=== PATIENT | male | born 1980 | race Caucasian/White ===

== ENCOUNTER 2017-11-02 17:42 | Emergency (ER) | END 2017-11-02 19:40 | disposition home or self-care (01) ==

== ENCOUNTER 2018-09-20 11:00 | Inpatient (IN) | payer SELFPAY ==
[~2018-09-20] VITALS: Ht 180.3 cm; Wt 95.5 kg
[~2018-09-20 11:00] MED LIST: NAPR-985 PO
[2018-09-20] MEDS ORDERED: SOD CHLORIDE 0.9% 250 ML IV STA (12:41)
[2018-09-20] MEDS ORDERED: ONDANSETRON 4 MG INJ IV STA (12:41)
[2018-09-20] MEDS ORDERED: morphine 4 MG/ML VIAL IV STA (12:41)
--- NOTE | 2018-09-20 13:38 | ERD ---
ER Documentation Chief Complaint Chief Complaint pt is bib family with c/o LLQ abd pain since last night HPI 38-year-old male presents the emergency department complaining of left lower quadrant abdominal pain. Patient was in his normal state of health until yesterday which time he began developing a left lower quadrant abdominal pain. Pain was non-provoked and nonradiating. Its associated with no blood in his stool. He was nauseous and had one episode of nonbilious, nonbloody emesis. Patient had no urinary symptoms. Patient reports the pain is severe. ROS All systems reviewed and are negative except as per history of present illness. Medications Home Meds Active Scripts Naproxen* (Naprosyn*) 500 Mg Tablet, 500 MG PO BID PRN for PAIN AND/OR INFLAMMATION, #30 TAB Prov:JONELLE HESS PA-C 11/02/17 Allergies Allergies: Coded Allergies: No Known Allergy (Unverified , 11/02/17) PMhx/Soc Hx Alcohol Use: Yes (social) Hx Substance Use: No Hx Tobacco Use: No FmHx Noncontributory for chief complaint Physical Exam Vitals Vital Signs Date Temp Pulse Resp B/P (MAP) Pulse Ox O2 O2 Flow FiO2 Time Delivery Rate 09/20/18 98.3 74 18 123/73 98 11:14 (90) Physical Exam GENERAL: The patient is well developed and appropriate for usual state of health in no apparent distress HEENT: Pupils equal, round, and reactive to light. EOMI. There is no scleral icterus. NECK: C-spine is soft and supple, there is no meningismus. There is no cervical lymphadenopathy. LUNGS: Clear to auscultation bilaterally. There are no rales, wheezes or rhonchi. HEART: Regular rate and rhythm, no murmurs, clicks, rubs or gallops. ABDOMEN: Soft, nondistended. Patient has significant left lower quadrant pain with localized guarding. No rebound or diffuse peritonitis noted. EXTREMITIES: There is no peripheral cyanosis or edema. No focal swelling or erythema. NEURO: The patient moves all four extremities with 5/5 strength. Cranial nerves II - XII are intact. Normal gait. Alert and oriented SKIN: There is no apparent rash or petechiae. HEME/LYMPHATIC: There is no evidence of excessive bruising or lymphedema. PSYCHIATRIC: The patient does not appear anxious or depressed. Result Diagram: 09/20/18 1256 Results 24 hrs Laboratory Tests Test 09/20/18 12:56 White Blood Count 23.8 10^3/ul Red Blood Count 4.82 10^6/ul Hemoglobin 14.6 g/dl Hematocrit 43.0 % Mean Corpuscular Volume 89.2 fl Mean Corpuscular Hemoglobin 30.3 pg Mean Corpuscular Hemoglobin Concent 34.0 g/dl Red Cell Distribution Width 12.7 % Platelet Count 231 10^3/UL Mean Platelet Volume 10.2 fl Immature Granulocytes % 0.600 % Neutrophils % 87.9 % Lymphocytes % 5.6 % Monocytes % 5.7 % Eosinophils % 0.0 % Basophils % 0.2 % Nucleated Red Blood Cells % 0.0 /100WBC Immature Granulocytes # 0.140 10^3/ul Neutrophils # 20.9 10^3/ul Lymphocytes # 1.3 10^3/ul Monocytes # 1.4 10^3/ul Eosinophils # 0.0 10^3/ul Basophils # 0.1 10^3/ul Nucleated Red Blood Cells # 0.0 10^3/ul Urine Color [place]IO Urine Clarity SLIGHTLY CLOUDY Urine pH 5.0 Urine Specific [place] 1.021 Urine Ketones 1+ mg/dL Urine Nitrite NEGATIVE mg/dL Urine Bilirubin NEGATIVE mg/dL Urine Urobilinogen 1+ mg/dL Urine Leukocyte Esterase NEGATIVE Chad/ul Urine Microscopic RBC 0 /HPF Urine Microscopic WBC 1 /HPF Urine Bacteria FEW /HPF Urine Mucus MANY /HPF Urine Hemoglobin NEGATIVE mg/dL Urine Glucose NEGATIVE mg/dL Urine Total Protein NEGATIVE mg/dl Current Medications Medications Dose Sig/Mehrdad Start Time Status Last (Trade) Ordered Route PRN Stop Time Admin Dose Reason Admin Sodium 250 ml @ Q1H STAT 09/20/18 09/20/18 Chloride 250 mls/hr IV 12:41 13:03 09/20/18 13:40 Morphine 4 mg ONCE STAT 09/20/18 DC 09/20/18 Sulfate IV 12:41 13:03 (morphine) 09/20/18 12:42 Ondansetron 4 mg ONCE STAT 09/20/18 DC 09/20/18 HCl (Zofran IV 12:41 13:03 Inj) 09/20/18 12:42 Piperacillin 100 ml @ ONCE ONCE 09/20/18 Sod/ 200 mls/hr IVPB 14:00 Tazobactam 5/24/19 14:29 Sod 100 ml @ ONCE ONCE 09/20/18 Metronidazole 100 mls/hr IVPB 14:00 09/20/18 14:59 Procedures/MDM Patient was taken to a room, seen and evaluated. Comfort measures were initiated. RADIOLOGY: Reviewed with the radiologist CONSULTATION: Hospitalist was notified for admission REEVALUATION: 1335: diagnostic tests were appreciated. His pain was improved. Arrangements were made for admission. MEDICAL DECISION MAKIN-year-old otherwise healthy male presents with abdominal pain of uncertain etiology. Although the differential diagnosis entertained included appendicitis and other intra-abdominal concerns, his evaluation including his CT images demonstrate evidence of acute diverticulitis without rupture or abscess. Given his significant the elevated white count, he appears to be high risk. Patient will be admitted for IV antibiotics, pain control and further observation. Departure Diagnosis: Primary Impression: Diverticulitis Condition: ELIUD Remy September 20, 2018 13:38
[2018-09-20] MEDS ORDERED: PIPER-TAZO 3.375 GM IV (PMX) 100 ML IVPB ONE (14:00)
[2018-09-20] MEDS ORDERED: ONDANSETRON 4 MG INJ IV PRN ×2 (14:00→14:30)
[2018-09-20] MEDS ORDERED: metroNIDAZOLE 500 MG/NS (PMX) 100 ML IVPB ONE (14:00)
[2018-09-20] MEDS ORDERED: ACETAMINOPHEN 325 MG TAB PO PRN ×2 (14:00→14:30)
[2018-09-20] MEDS: SOD CHLORIDE 0.9% 1,000 ML IV SCH (14:01)
[2018-09-20] MEDS ORDERED: HYDROCODONE/APAP (5/325) TAB PO PRN (14:30)
[2018-09-20] MEDS ORDERED: MAGNESIUM HYDROXIDE 30ML CUP PO PRN (14:30)
[2018-09-20] MEDS ORDERED: NACL 0.9% 3 ML SYG IV SCH (14:30)
[2018-09-20] MEDS ORDERED: ACETAMINOPHEN 650 MG SUPP PR PRN (14:30)
[2018-09-20] MEDS ORDERED: DOCUSATE SODIUM 100 MG CAP PO PRN (14:30)
[2018-09-20] MEDS ORDERED: BISACODYL 10 MG SUPP PR PRN (14:30)
[2018-09-20] MEDS ORDERED: morphine 2 MG INJ IV PRN (14:30)
--- NOTE | 2018-09-20 18:33 | HP ---
Date/Time of Note Date/Time of Note DATE: 09/20/18 TIME: 18:28 Assessment/Plan VTE Prophylaxis SCD applied (from Nsg): Yes Pharmacological prophylaxis: NA/contraindicated Pharm contraindication: low risk/ambulating Lines/Catheters IV Catheter Type (from Nrsg): Saline Lock Assessment/Plan Hospital Course Assessment and plan 1. Diverticulitis. Placed on antibiotics. Continue IV fluids. Continue with analgesics as needed. 2. Suspect renal lesion. We will obtain renal ultrasound. 3. Leukocytosis. Secondary to #1. Continue antibiotic regimen. 4. Hyperbilirubinemia. Follow-up on trend. Disposition plan. Continue with anabiotics. Will advance diet once abdominal pain subsides. Continue monitoring. Discussed plan of care with Result Diagram: 09/20/18 1256 09/20/18 1256 Results 24hrs Laboratory Tests Test 09/20/18 12:56 White Blood Count 23.8 H Red Blood Count 4.82 Hemoglobin 14.6 Hematocrit 43.0 Mean Corpuscular Volume 89.2 Mean Corpuscular Hemoglobin 30.3 Mean Corpuscular Hemoglobin Concent 34.0 Red Cell Distribution Width 12.7 Platelet Count 231 Mean Platelet Volume 10.2 Immature Granulocytes % 0.600 H Neutrophils % 87.9 H Lymphocytes % 5.6 L Monocytes % 5.7 Eosinophils % 0.0 Basophils % 0.2 Nucleated Red Blood Cells % 0.0 Immature Granulocytes # 0.140 H Neutrophils # 20.9 H Lymphocytes # 1.3 Monocytes # 1.4 H Eosinophils # 0.0 Basophils # 0.1 Nucleated Red Blood Cells # 0.0 Urine Color [place] Urine Clarity SLIGHTLY CLOUDY A Urine pH 5.0 Urine Specific [place] 1.021 Urine Ketones 1+ H Urine Nitrite NEGATIVE Urine Bilirubin NEGATIVE Urine Urobilinogen 1+ H Urine Leukocyte Esterase NEGATIVE Urine Microscopic RBC 0 Urine Microscopic WBC 1 Urine Bacteria FEW A Urine Mucus MANY A Urine Hemoglobin NEGATIVE Urine Glucose NEGATIVE Urine Total Protein NEGATIVE Sodium Level 138 Potassium Level 3.7 Chloride Level 105 Carbon Dioxide Level 24 Anion Gap 9 Blood Urea Nitrogen 8 Creatinine 0.77 Est Glomerular Filtrat Rate mL/min > 60 Glucose Level 120 Calcium Level 9.5 Total Bilirubin 1.6 H Direct Bilirubin 0.00 Indirect Bilirubin 1.6 H Aspartate Amino Transf (AST/SGOT) 25 Alanine Aminotransferase (ALT/SGPT) 31 Alkaline Phosphatase 101 Total Protein 8.0 Albumin 4.6 Globulin 3.40 H Albumin/Globulin Ratio 1.35 Lipase 47 HPI/ROS Admit Date/Time Admit Date/Time This is a 38-year-old male with no reported past medical history who came to [facility] after reports of 1 day duration of abdominal pain. Patient reports that his pain is on left lower abdominal quadrant and is 10 out of 10 upon palpation. He reports that the night before admission he was eating a piece of pizza at night and around 12:30 AM to 1 AM he started to have stomach pain. He reports that he had an episode of diarrhea. Pain persisted and asked that she went to [facility]. He reports he had one episode of clear emesis around 11 AM in the hospital. Patient was placed on antibiotics. Labs were noted with a white count of 23.8. Abdominal pelvic CT scan showed acute proximal sigmoid diverticulitis. There was also finding of left renal low-density lesion measuring up to 1 cm suspect renal cyst. Afebrile during visit. We will evaluate him for the aformentiond. Hx of Present Illness Denies any previous past medical history ROS 12 point review of systems obtained entirely negative except as mentioned in history of present illness PMH/Family/Social Past Medical History Medical History: no pertinent history Medications Current Medications Ondansetron HCl (Zofran Inj) 4 mg BRIDGE ORDER PRN IV NAUSEA/VOMITING Last administered on 09/20/18at 17:50; Admin Dose 4 MG; Start 09/20/18 at 14:00; Stop 09/21/18 at 13:59 Acetaminophen (Tylenol Tab) 650 mg ER BRIDGE PRN PO .MILD PAIN 1-3 OR TEMP; Start 09/20/18 at 14:00; Stop 09/21/18 at 13:59 Sodium Chloride 1,000 ml @ 100 mls/hr Q10H IV Last administered on 09/20/18at 14:01; Admin Dose 100 MLS/HR; Start 09/20/18 at 14:01 IV Flush (NS 3 ml) 3 ml PER PROTOCOL IV ; Start 09/20/18 at 14:30 Ondansetron HCl (Zofran Inj) 4 mg Q6H PRN IV NAUSEA/VOMITING; Start 09/20/18 at 14:30 Acetaminophen (Tylenol Tab) 650 mg Q6H PRN PO .PAIN 1-3 OR TEMP; Start 09/20/18 at 14:30 Acetaminophen (Tylenol Supp) 650 mg Q6H PRN [place] .PAIN 1-3 OR TEMP; Start 09/20/18 at 14:30 Acetaminophen/ Hydrocodone Bitart ([place] (5/325)) 1 tab Q6H PRN PO .MOD PAIN 4- 6; Start 09/20/18 at 14:30 Morphine Sulfate (morphine) 2 mg Q4H PRN IV .SEVERE PAIN 7-10 Last administered on 09/20/18at 17:51; Admin Dose 2 MG; Start 09/20/18 at 14:30 Docusate Sodium (Colace) 100 mg Q12H PRN PO .CONSTIPATION; Start 09/20/18 at 14:30 Magnesium Hydroxide (Milk Of Mag) 30 ml DAILY PRN PO .CONSTIPATION; Start 09/20/18 at 14:30 Bisacodyl (Dulcolax Supp) 10 mg DAILY PRN [place] .CONSTIPATION; Start 09/20/18 at 14:30 Famotidine (Pepcid Iv) 20 mg DAILY IV ; Start 09/21/18 at 09:00 Piperacillin Sod/ Tazobactam Sod 100 ml @ 200 mls/hr Q6 IVPB ; Start 09/20/18 at 19:00 Coded Allergies: No Known Allergy (Unverified , 11/02/17) Past Surgical History Past Surgical Hx: no surgical history Family History Significant Family History: diabetes (On father side) Social History Alcohol Use: none Smoking Status: Unknown if ever smoked Drug Use: marijuana Exam/Review of Systems Vital Signs Vitals Vital Signs Date Temp Pulse Resp B/P (MAP) Pulse Ox O2 O2 Flow FiO2 Time Delivery Rate 09/20/18 99.1 86 20 118/61 97 Room Air 17:45 (80) Exam Constitutional: alert, oriented Psych: nl mood/affect Head: normocephalic Neck: supple, non-tender Respiratory: clear to auscultation, normal air movement Cardiovascular: regular rate and rhythm, nl pulses Gastrointestinal: soft, tender Musculoskeletal: nl extremities to inspection Neurological: FRONT MAKER II-XII intact, nl mental status, nl speech Skin: nl MARYANN Suresh NP September 20, 2018 18:33
[2018-09-20 19:46] VITALS: Ht 180.3 cm; Wt 95.5 kg
[2018-09-20] MEDS: PIPER-TAZO 3.375 GM IV (PMX) 100 ML IVPB SCH (20:10)
[2018-09-20 20:15] VITALS: BP 119/70; PULSE 81; RESP 18
[2018-09-21] MEDS: SOD CHLORIDE 0.9% 1,000 ML IV SCH ×3 (00:01→14:32)
[2018-09-21] MEDS: PIPER-TAZO 3.375 GM IV (PMX) 100 ML IVPB SCH ×5 (00:29→23:59)
[2018-09-21 01:58] VITALS: BP 106/59; PULSE 81; RESP 16
[2018-09-21] MEDS: FAMOTIDINE 20 MG INJ IV SCH (08:18)
[2018-09-21 09:27] VITALS: BP 115/73; PULSE 89; RESP 18
--- NOTE | 2018-09-21 16:31 | PN ---
Date/Time of Note Date/Time of Note DATE: 09/21/18 TIME: 16:25 Assessment/Plan VTE Prophylaxis Risk score (from Ns)>0 risk: 0 SCD applied (from Ns): Yes Pharmacological prophylaxis: NA/contraindicated Pharm contraindication: low risk/ambulating Lines/Catheters IV Catheter Type (from [facility]): Peripheral IV Assessment/Plan Hospital Course Assessment and plan 1. Diverticulitis. -Placed on antibiotics. - Continue IV fluids. - Continue with analgesics as needed. - leukocytosis improving - advance diet as tolerated 2. Suspect renal lesion - renal u.s. pending 3. Leukocytosis. -Secondary to #1. -Continue antibiotic regimen. 4. Hyperbilirubinemia. - Follow-up on trend. Disposition plan. appears to be improving. continue abx. advanced diet as tolerated. renal u.s. pending. continue inhouse monitoring Discussed plan of care with Result Diagram: 09/21/18 1211 09/21/18 0434 Results 24hrs Laboratory Tests Test 09/21/18 04:34 09/21/18 12:11 Sodium Level 138 Potassium Level 3.6 Chloride Level 107 Carbon Dioxide Level 22 Anion Gap 9 Blood Urea Nitrogen 7 Creatinine 0.78 Est Glomerular Filtrat Rate mL/min > 60 Glucose Level 124 Hemoglobin A1c 5.3 Calcium Level 8.9 Phosphorus Level 3.1 Magnesium Level 2.2 Total Bilirubin 1.9 H Direct Bilirubin 0.00 Indirect Bilirubin 1.9 H Aspartate Amino Transf (AST/SGOT) 22 Alanine Aminotransferase (ALT/SGPT) 22 Alkaline Phosphatase 83 Total Protein 7.0 # Albumin 3.9 Globulin 3.10 Albumin/Globulin Ratio 1.25 Triglycerides Level 187 H Cholesterol Level 233 H LDL Cholesterol, Calculated 153 HDL Cholesterol 43 Cholesterol/HDL Ratio 5.4 Thyroid Stimulating Hormone (TSH) 0.426 L Free Thyroxine Index 2.34 Thyroxine (T4) 6.0 Triiodothyronine (T3) Uptake 39.0 White Blood Count 18.0 #H Red Blood Count 4.51 L Hemoglobin 13.6 L Hematocrit 41.3 L Mean Corpuscular Volume 91.6 Mean Corpuscular Hemoglobin 30.2 Mean Corpuscular Hemoglobin Concent 32.9 Red Cell Distribution Width 13.0 Platelet Count 225 Mean Platelet Volume 10.3 Immature Granulocytes % 0.300 Neutrophils % 83.9 H Lymphocytes % 10.0 L Monocytes % 5.3 Eosinophils % 0.3 Basophils % 0.2 Nucleated Red Blood Cells % 0.0 Immature Granulocytes # 0.060 H Neutrophils # 15.1 H Lymphocytes # 1.8 Monocytes # 1.0 H Eosinophils # 0.1 Basophils # 0.0 Nucleated Red Blood Cells # 0.0 Subjective 24 Hr Interval Summary Free Text/Dictation still reports abd pain 8 out of 10. States pain is less today Exam/Review of Systems Exam Vitals Vital Signs Date Temp Pulse Resp B/P (MAP) Pulse Ox O2 O2 Flow FiO2 Time Delivery Rate 09/21/18 98.7 89 18 115/73 99 Room Air 09:27 (87) Intake and Output 09/20/18 09/20/18 09/21/18 1515:00 23:00 07:00 IntakeIntake Total 100 ml 1200 ml BalanceBalance 100 ml 1200 ml Constitutional: alert, oriented Psych: nl mood/affect Head: normocephalic Eyes: nl conjunctiva Neck: supple, non-tender Respiratory: clear to auscultation Cardiovascular: regular rate and rhythm Gastrointestinal: soft, tender (LLQ) Neurological: SUPPLIER SPECIALIST II-XII intact, nl mental status, nl speech Skin: nl turgor Results Results 24hrs Laboratory Tests Test 09/21/18 04:34 09/21/18 12:11 Sodium Level 138 Potassium Level 3.6 Chloride Level 107 Carbon Dioxide Level 22 Anion Gap 9 Blood Urea Nitrogen 7 Creatinine 0.78 Est Glomerular Filtrat Rate mL/min > 60 Glucose Level 124 Hemoglobin A1c 5.3 Calcium Level 8.9 Phosphorus Level 3.1 Magnesium Level 2.2 Total Bilirubin 1.9 H Direct Bilirubin 0.00 Indirect Bilirubin 1.9 H Aspartate Amino Transf (AST/SGOT) 22 Alanine Aminotransferase (ALT/SGPT) 22 Alkaline Phosphatase 83 Total Protein 7.0 # Albumin 3.9 Globulin 3.10 Albumin/Globulin Ratio 1.25 Triglycerides Level 187 H Cholesterol Level 233 H LDL Cholesterol, Calculated 153 HDL Cholesterol 43 Cholesterol/HDL Ratio 5.4 Thyroid Stimulating Hormone (TSH) 0.426 L Free Thyroxine Index 2.34 Thyroxine (T4) 6.0 Triiodothyronine (T3) Uptake 39.0 White Blood Count 18.0 #H Red Blood Count 4.51 L Hemoglobin 13.6 L Hematocrit 41.3 L Mean Corpuscular Volume 91.6 Mean Corpuscular Hemoglobin 30.2 Mean Corpuscular Hemoglobin Concent 32.9 Red Cell Distribution Width 13.0 Platelet Count 225 Mean Platelet Volume 10.3 Immature Granulocytes % 0.300 Neutrophils % 83.9 H Lymphocytes % 10.0 L Monocytes % 5.3 Eosinophils % 0.3 Basophils % 0.2 Nucleated Red Blood Cells % 0.0 Immature Granulocytes # 0.060 H Neutrophils # 15.1 H Lymphocytes # 1.8 Monocytes # 1.0 H Eosinophils # 0.1 Basophils # 0.0 Nucleated Red Blood Cells # 0.0 Medications Medication Current Medications Sodium Chloride 1,000 ml @ 100 mls/hr Q10H IV Last administered on 09/21/18at 14:32; Admin Dose 100 MLS/HR; Start 09/20/18 at 14:01 IV Flush (NS 3 ml) 3 ml PER PROTOCOL IV ; Start 09/20/18 at 14:30 Ondansetron HCl (Zofran Inj) 4 mg Q6H PRN IV NAUSEA/VOMITING; Start 09/20/18 at 14:30 Acetaminophen (Tylenol Tab) 650 mg Q6H PRN PO .PAIN 1-3 OR TEMP; Start 09/20/18 at 14:30 Acetaminophen (Tylenol Supp) 650 mg Q6H PRN [place] .PAIN 1-3 OR TEMP; Start 09/20/18 at 14:30 Acetaminophen/ Hydrocodone Bitart ([place] (5/325)) 1 tab Q6H PRN PO .MOD PAIN 4- 6; Start 09/20/18 at 14:30 Morphine Sulfate (morphine) 2 mg Q4H PRN IV .SEVERE PAIN 7-10 Last administered on 09/20/18at 17:51; Admin Dose 2 MG; Start 09/20/18 at 14:30 Docusate Sodium (Colace) 100 mg Q12H PRN PO .CONSTIPATION; Start 09/20/18 at 14:30; Status Hold Magnesium Hydroxide (Milk Of Mag) 30 ml DAILY PRN PO .CONSTIPATION; Start 09/20/18 at 14:30; Status Hold Bisacodyl (Dulcolax Supp) 10 mg DAILY PRN [place] .CONSTIPATION; Start 09/20/18 at 14:30 Famotidine (Pepcid Iv) 20 mg DAILY IV Last administered on 09/21/18at 08:18; Admin Dose 20 MG; Start 09/21/18 at 09:00 Piperacillin Sod/ Tazobactam Sod 100 ml @ 200 mls/hr Q6 IVPB Last administered on 09/21/18at 12:08; Admin Dose 200 MLS/HR; Start 09/20/18 at 19:00 MARYANN OTOOLE NP September 21, 2018 16:31
[2018-09-21 19:59] VITALS: BP 117/64; PULSE 75; RESP 20
[2018-09-22] MEDS: SOD CHLORIDE 0.9% 1,000 ML IV SCH ×2 (01:08→11:41)
[2018-09-22 02:07] VITALS: BP 119/66; PULSE 71; RESP 18
[2018-09-22] MEDS: PIPER-TAZO 3.375 GM IV (PMX) 100 ML IVPB SCH ×3 (05:51→18:02)
[2018-09-22 08:26] VITALS: BP 121/72; PULSE 87; RESP 18
[2018-09-22] MEDS: FAMOTIDINE 20 MG INJ IV SCH (09:11)
[2018-09-22] MEDS ORDERED: SACC250C PO (11:11)
[2018-09-22] MEDS ORDERED: CIPR500T4 PO (11:11)
[2018-09-22] MEDS ORDERED: METR500T PO (11:11)
[2018-09-22 15:21] VITALS: BP 126/66; PULSE 80; RESP 18
--- NOTE | 2018-09-22 16:17 | PDOCDIS ---
Discharge Instructions DIAGNOSIS Discharge Diagnosis 1. Diverticulitis. ed 2. Suspect renal lesion 3. Leukocytosis. 4. Hyperbilirubinemia. CONDITION [id number] Patient Condition: [id number] Stable HOME CARE INSTRUCTIONS: [id number] Diet Instructions: [id number] Low Fat /Cholesterol FOLLOW UP/APPOINTMENTS Follow-up Plan 1. Follow up with your primary care provider in one week MARYANN OTOOLE NP September 22, 2018 16:17
--- NOTE | 2018-09-22 16:20 | DS ---
Date/Time of Note Date/Time of Note DATE: 09/22/18 TIME: 16:17 Discharge Summary Admission/Discharge Info Admit Date/Time September 20, 2018 at 13:39 Discharge Date/Time Discharge Diagnosis 1. Diverticulitis. ed 2. Suspect renal lesion 3. Leukocytosis. 4. Hyperbilirubinemia. Patient Condition: Stable Hx of Present Illness Denies any previous past medical history Hospital Course This is a 38-year-old male with no reported past medical history who came to [facility] after reports of 1 day duration of abdominal pain. Patient reports that his pain is on left lower abdominal quadrant and is 10 out of 10 upon palpation. He reports that the night before admission he was eating a piece of pizza at night and around 12:30 AM to 1 AM he started to have stomach pain. He reports that he had an episode of diarrhea. Pain persisted and asked that she went to [facility]. He reports he had one episode of clear emesis around 11 AM in the hospital. Patient was placed on antibiotics. Labs were noted with a white count of 23.8. Abdominal pelvic CT scan showed acute proximal sigmoid diverticulitis. Patient was placed on appropriate antibiotics and IV fluids. He did tolerate treatment well. Patient was gradually advanced on his diet. During his course of stay did improve. Leukocytosis did downtrend and he was advised for outpatient follow-up with his primary care provider. He was afebrile on the day of his discharge. The plan of care was discussed with the patient and patient verbalized his understanding. On the day of discharge patient was in stable condition Discussed plan of care with [facility]. [facility] Active Scripts Saccharomyces Boulardii* (Florastor*) 250 Mg Cap, 500 MG PO BID, #14 CAP Prov:MARYANN OTOOLE [employer]OUNT EXECUTIVE 09/22/18 Metronidazole* (Flagyl*) 500 Mg Tablet, 500 MG PO Q8, #21 TAB Prov:MARYANN OTOOLE [employer] ACCOUNT EXECUTIVE 09/22/18 Ciprofloxacin Hcl* (Ciprofloxacin Hcl*) 500 Mg Tablet, 500 MG PO BID, #14 TAB Prov:MARYANN OTOOLE [employer] ACCOUNT EXECUTIVE 09/22/18 Discontinued Scripts Naproxen* (Naprosyn*) 500 Mg Tablet, 500 MG PO BID PRN for PAIN AND/OR INFLAMMATION, #30 TAB Prov:JONELLE HESS PA-C 11/02/17 Follow-up Plan 1. Follow up with your primary care provider in one week Primary Care Provider Care Physician No Primary Time spent on discharge: > 30 minutes MARYANN OTOOLE NP September 22, 2018 16:20
== END 2018-09-22 19:45 | disposition home or self-care (01) | DRG 392 ==
LOC: FTE 11:00 → MS1 13:39 → EDBEDREQ 19:08
PROVIDERS: ADMIT Internal Medicine; ATTEND Internal Medicine
DX: K57.32 Diverticulitis of large intestine without perforation or abscess without bleeding (principal); E80.6 Other disorders of bilirubin metabolism; N28.9 Disorder of kidney and ureter, unspecified
CPT/HCPCS: 36415; 74176; 76775; 80053; 80061; 81001; 81003; 83036; 83690; 83735; 84100; 84436; 84443; 84479; 85025; 96374; 96375; J2270; J2405; J2543; J7030; J7040